=== PATIENT | male | born 1970 | race Caucasian/White ===

== ENCOUNTER 2017-10-10 02:38 | Emergency (ER) | payer OTHER, MEDICAID ==
[2017-10-10 02:45] VITALS: BP 157/96
[2017-10-10] MEDS ORDERED: CHLORDIAZEPOXIDE 25MG PREPK#6 BTL TAKEHOME ONE (02:46)
--- NOTE | 2017-10-10 02:49 | EDPHY ---
H & P Stated Complaint: sent from detox for librium Time Seen by Provider: 10/10/17 02:48 HPI/ROS: HPI CHIEF COMPLAINT: Alcohol draw from [facility]. Need for Librium. HISTORY OF PRESENT ILLNESS: 47-year-old male presents emergency room from the [facility], for alcohol withdrawal. Patient here for Librium. Denies any significant complaints. He does have a recent injury of his left clavicle and he is in a sling. Patient reports he drinks vodka. Typically a 5th a day. He thinks his last drink was yesterday. Sent here to the emergency room from the [facility] for withdrawl. Patient presents here is not noted to be tachycardic, additionally he is not tremulous. He denies any significant complaints. Denies seeing or hearing anything. No evidence of delirium tremens on exam. Past Medical History: Denies significant medical history Past Surgical History: Denies significant surgical history Social History: Alcoholism. daily he alcohol use, homeless. Family History: Noncontributory ROS REVIEW OF SYSTEMS: 10 Systems were reviewed and negative with the exception of the elements mentioned in the history of present illness. Exam Constitutional alcohol draw, triage nursing summary reviewed, vital signs reviewed, awake/alert. Eyes normal conjunctivae and sclera, EOMI, PERRLA. HENT normal inspection, atraumatic, moist mucus membranes, no epistaxis, neck supple/ no meningismus, no raccoon eyes. Respiratory clear to auscultation bilaterally, normal breath sounds, no respiratory distress, no wheezing. Cardiovascular rate normal, regular rhythm, no murmur, no edema, distal pulses normal. Gastrointestinal soft, non-tender, no rebound, no guarding, normal bowel sounds, no distension, no pulsatile mass. Genitourinary no CVA tenderness. Musculoskeletal no midline vertebral tenderness, full range of motion, no calf swelling, no tenderness of extremities, no meningismus, good pulses, neurovascularly intact. Skin pink, warm, & dry, no rash, skin atraumatic. Neurologic awake, alert and oriented x 3, AAOx3, moves all 4 extremities equally, motor intact, sensory intact, CN II-XII intact, normal cerebellar, normal vision, normal speech. Psychiatric normal mood/affect. Heme/Lymph/Immune no lymphadenopathy. Differential Diagnosis: Includes but is not limited to in a particular order alcohol withdrawal, alcohol withdrawl sz, anxiety Medical Decision Making: Plan for this patient Librium p.o. Here in the emergency room. Additionally Librium take-home pack back to the [facility]. No evidence severe withdrawal here at this time. He is not tachycardic he is not tremulous. Not seeing or hearing anything. No tongue fasciculations. Source: Patient - Personal History Current Tetanus Diphtheria and Acellular Pertussis (TDAP): Yes - Medical/Surgical History Hx Asthma: No Hx Chronic Respiratory Disease: No Hx Diabetes: No Hx Cardiac Disease: No Hx Renal Disease: No Hx Cirrhosis: No Hx Alcoholism: Yes Hx HIV/AIDS: No Hx Splenectomy or Spleen Trauma: No Other PMH: fx clavicle - Social History Smoking Status: Current every day smoker Constitutional: Initial Vital Signs Temperature (C) 36.7 C 10/10/17 02:43 Heart Rate 84 10/10/17 02:43 Respiratory Rate 16 10/10/17 02:43 Blood Pressure 157/96 H 10/10/17 02:43 O2 Sat (%) 97 10/10/17 02:43 O2 Delivery Mode Room Air Allergies/Adverse Reactions: No Known Allergies Allergy (Unverified 10/10/17 02:43) Home Medications: Medication Instructions Recorded NK [No Known Home Meds] 10/05/17 Departure - Departure Disposition: Home, Routine, Self-Care Clinical Impression: Alcohol withdrawal Qualifiers: Complication of substance-induced condition: uncomplicated Qualified Code(s): F10.230 - Alcohol dependence with withdrawal, uncomplicated Condition: Good Instructions: Chlordiazepoxide/Clidinium (By mouth), Alcohol Withdrawal (ED), Alcohol Dependence (ED) Referrals: Patient,NotPresent [Primary Care Provider] - As per Instructions
[2017-10-10] MEDS ORDERED: chlordiazePOXIDE 25 MG CAP PO ONE ×3 (02:51→02:54)
== END 2017-10-10 02:58 | disposition home or self-care (01) ==
DX: F10.230 Alcohol dependence with withdrawal, uncomplicated (principal); F17.200 Nicotine dependence, unspecified, uncomplicated

== ENCOUNTER 2017-11-14 22:23 | Emergency (ER) | payer OTHER, MEDICAID ==
--- NOTE | 2017-11-14 22:40 | EDPHY ---
H & P Time Seen by Provider: 11/14/17 22:33 HPI/ROS: CHIEF COMPLAINT: 47-year-old male here with complaint of abdominal pain and back pain for the last few hours. HISTORY OF PRESENT ILLNESS: 47-year-old male with a history of alcoholism well known to this emergency room here with complaint of abdominal pain and back pain. States the pain started approximately 2-3 hours ago while walking. There was no fall. Denies any fever chills. Denies any pain with urination. He does state that he feels like there is class in the stomach. Denies any black or tarry stools or hematemesis. REVIEW OF SYSTEMS: Constitutional: No fever, no chills. Eyes: No discharge. ENT: No sore throat. Cardiovascular: No chest pain, no palpitations. Respiratory: No cough, no shortness of breath. Gastrointestinal: + abdominal pain, no vomiting. Genitourinary: No hematuria. Musculoskeletal: + back pain. Skin: No rashes. Neurological: No headache. Smoking Status: Current every day smoker Physical Exam: General Appearance: Alert and no distress. Eyes: Pupils equal and round no injection. Respiratory: Chest is nontender, lungs are clear to auscultation. Cardiac: regular rate and rhythm. Gastrointestinal: Abdomen is soft with generalized mild abdominal tenderness, no masses, bowel sounds normal, no peritoneal signs Musculoskeletal: Neck is supple and nontender. Extremities have full range of motion and are nontender. Skin: No rashes or lesions. Constitutional: Initial Vital Signs Temperature (C) 37.4 C 11/14/17 22:32 Heart Rate 100 11/14/17 22:32 Respiratory Rate 16 11/14/17 22:32 Blood Pressure 133/84 H 11/14/17 22:32 O2 Sat (%) 96 11/14/17 22:32 O2 Delivery Mode Room Air Allergies/Adverse Reactions: No Known Allergies Allergy (Unverified 10/10/17 02:43) Home Medications: Medication Instructions Recorded NK [No Known Home Meds] 10/05/17 Medical Decision Making - Diagnostics Imaging Results: Imaging Impressions Abdomen/Pelvis CT 11/14/17 22:43 Impression: Moderate constipation. No evidence for hydronephrosis in nephrolithiasis or ureterolithiasis. No evidence for diverticulitis. Degenerative disk and degenerative joint disease lower lumbar spine. Results called and discussed with Josh Lauren PA-C at 11/14/2017 23:30. Attention: This CT examination is specifically designed to evaluate patients who are clinically suspected of having acute obstructive uropathy. This examination does not use radiographic contrast, and as such, provides only a limited evaluation of the abdomen, pelvis and retroperitoneum. If there is further clinical suspicion for pathological conditions other than obstructive uropathy, a complete CT evaluation of the abdomen and pelvis utilizing intravenous, oral, and rectal contrast should be considered. ED Course/Re-evaluation: Patient here with multiple complaints from shoulder pain, abdominal pain, back pain, foot pain. He was evaluated also vital signs are stable. He had slight leukocytosis but no evidence of intra-abdominal infection, pneumonia, meningitis , septic joint, cellulitis. Patient was clearly agitated and appeared intoxicated. He was medically cleared and discharged. Did have a small amount of blood in the urine and as he was complaining of back pain this could represent a passed kidney stone but there is no evidence of infection or acute renal failure or obstructing stone. - Data Points Laboratory Results: Laboratory Results 11/14/17 22:55 11/14/17 22:55 11/14/17 11/14/17 11/14/17 23:26 23:20 22:55 WBC RBC Hgb Hct MCV MCH MCHC RDW Plt Count MPV Neut % (Auto) Lymph % (Auto) [place] % (Auto) Eos % (Auto) Baso % (Auto) Nucleat RBC Rel Count Absolute Neuts (auto) Absolute Lymphs (auto) Absolute Monos (auto) Absolute Eos (auto) Absolute Basos (auto) Absolute Nucleated RBC Immature Gran % Immature Gran # RBC/WBC/PLT Morphology Platelet Estimate Sodium 135 mEq/L mEq/L (135-145) Potassium 3.8 mEq/L mEq/L (3.3-5.0) Chloride 101 mEq/L mEq/L (97-110) Carbon Dioxide 21 mEq/l L mEq/l (22-31) Anion Gap 13 mEq/L mEq/L (8-16) BUN 7 mg/dL mg/dL (7-23) Creatinine 0.7 mg/dL mg/dL (0.7-1.3) Estimated GFR > 60 Glucose 110 mg/dL H mg/dL (70-100) Calcium 9.6 mg/dL mg/dL (8.5-10.4) Total Bilirubin 1.8 mg/dL H mg/dL (0.1-1.4) AST 30 IU/L IU/L (17-59) ALT 36 IU/L IU/L (21-72) Alkaline Phosphatase 67 IU/L IU/L (38-126) Total Protein 6.8 g/dL g/dL (6.3-8.2) Albumin 4.2 g/dL g/dL (3.5-5.0) Lipase 226 IU/L IU/L (23-300) Urine Color PALE YELLOW Urine Appearance HAZY Urine pH 7.0 (5.0-7.5) Ur Specific [place] 1.004 (1.002-1.030) Urine Protein NEGATIVE (NEGATIVE) Urine Ketones TRACE H (NEGATIVE) Urine Blood 1+ H (NEGATIVE) Urine Nitrate NEGATIVE (NEGATIVE) Urine Bilirubin NEGATIVE (NEGATIVE) Urine Urobilinogen NEGATIVE EU EU (0.2-1.0) Ur Leukocyte Esterase NEGATIVE (NEGATIVE) Urine RBC 1-3 /hpf /hpf (0-3) Urine WBC 1-3 /hpf /hpf (0-3) Ur Epithelial Cells NONE SEEN /lpf /lpf (NONE-1+) Urine Mucus TRACE /lpf /lpf (NONE-1+) Urine Glucose NEGATIVE (NEGATIVE) Urine Opiates Screen NEGATIVE ng/mL ng/mL (NEGATIVE) Urine Barbiturates NEGATIVE ng/mL ng/mL (NEGATIVE) Ur Phencyclidine Scrn NEGATIVE ng/mL ng/mL (NEGATIVE) Ur Amphetamines Screen NEGATIVE ng/mL ng/mL (NEGATIVE) U Benzodiazepines Scrn NEGATIVE ng/mL ng/mL (NEGATIVE) Urine Cocaine Screen NEGATIVE ng/mL ng/mL (NEGATIVE) U Marijuana (THC) Screen 407 ng/mL ng/mL (NEGATIVE) 11/14/17 22:55 WBC 17.99 10^3/uL H 10^3/uL (3.80-9.50) RBC 4.36 10^6/uL L 10^6/uL (4.40-6.38) Hgb 14.8 g/dL g/dL (13.7-17.5) Hct 40.2 % % (40.0-51.0) MCV 92.2 fL fL (81.5-99.8) MCH 33.9 pg pg (27.9-34.1) MCHC 36.8 g/dL H g/dL (32.4-36.7) RDW 12.5 % % (11.5-15.2) Plt Count 250 10^3/uL 10^3/uL (150-400) MPV 10.3 fL fL (8.7-11.7) Neut % (Auto) 90.5 % H % (39.3-74.2) Lymph % (Auto) 2.9 % L % (15.0-45.0) [place] % (Auto) 6.0 % % (4.5-13.0) Eos % (Auto) 0.1 % L % (0.6-7.6) Baso % (Auto) 0.2 % L % (0.3-1.7) Nucleat RBC Rel Count 0.0 % % (0.0-0.2) Absolute Neuts (auto) 16.28 10^3/uL H 10^3/uL (1.70-6.50) Absolute Lymphs (auto) 0.52 10^3/uL L 10^3/uL (1.00-3.00) Absolute Monos (auto) 1.08 10^3/uL H 10^3/uL (0.30-0.80) Absolute Eos (auto) 0.02 10^3/uL L 10^3/uL (0.03-0.40) Absolute Basos (auto) 0.04 10^3/uL 10^3/uL (0.02-0.10) Absolute Nucleated RBC 0.00 10^3/uL 10^3/uL (0-0.01) Immature Gran % 0.3 % % (0.0-1.1) Immature Gran # 0.05 10^3/uL 10^3/uL (0.00-0.10) RBC/WBC/PLT Morphology TNP Platelet Estimate TNP Sodium Potassium Chloride Carbon Dioxide Anion Gap BUN Creatinine Estimated GFR Glucose Calcium Total Bilirubin AST ALT Alkaline Phosphatase Total Protein Albumin Lipase Urine Color Urine Appearance Urine pH Ur Specific [place] Urine Protein Urine Ketones Urine Blood Urine Nitrate Urine Bilirubin Urine Urobilinogen Ur Leukocyte Esterase Urine RBC Urine WBC Ur Epithelial Cells Urine Mucus Urine Glucose Urine Opiates Screen Urine Barbiturates Ur Phencyclidine Scrn Ur Amphetamines Screen U Benzodiazepines Scrn Urine Cocaine Screen U Marijuana (THC) Screen Medications Given: Lorazepam (Ativan 1mg/Ml Iv Syr) 0.5 mg IV ONCE ONE Stop: 11/15/17 23:30 Last Admin: 11/15/17 00:04 Dose: Not Given Discontinued Medications Famotidine (Pepcid) 20 mg IVP EDNOW ONE Stop: 11/14/17 22:45 Last Admin: 11/14/17 23:24 Dose: 20 mg Fentanyl (Sublimaze) 100 mcg IVP EDNOW ONE Stop: 11/14/17 23:49 Last Admin: 11/15/17 00:24 Dose: 100 mcg Sodium Chloride (Ns) 1,000 mls @ 0 mls/hr IV EDNOW ONE; Wide Open PRN Reason: Protocol Stop: 11/14/17 22:45 Last Admin: 11/14/17 23:00 Dose: 1,000 mls Sodium Chloride (Ns) 1,000 mls @ 0 mls/hr IV EDNOW ONE; Wide Open PRN Reason: Protocol Stop: 11/14/17 23:31 Last Admin: 11/15/17 00:00 Dose: 1,000 mls Ketorolac Tromethamine (Toradol) 15 mg IVP EDNOW ONE Stop: 11/14/17 22:45 Last Admin: 11/14/17 23:24 Dose: 15 mg Lorazepam (Ativan Injection) 0.5 mg IVP EDNOW ONE Stop: 11/14/17 23:34 Last Admin: 11/14/17 23:59 Dose: 0.5 mg Departure - Departure Referrals: NONE *PRIMARY CARE P,. [Primary Care Provider] - As per Instructions
[2017-11-14] MEDS ORDERED: NS 1,000 ML IV ONE ×2 (22:44→23:30)
[2017-11-14] MEDS ORDERED: KETOROLAC 15 MG/1 ML SDV IVP ONE (22:44)
[2017-11-14] MEDS ORDERED: FAMOTIDINE 20 MG/2 ML SDV IVP ONE (22:44)
[2017-11-14 23:06] LABS: PLATELET COUNT 250 10^3/uL (150-400)
[2017-11-14] MEDS ORDERED: LORazepam 2 MG/ML INJ IVP ONE (23:33)
[2017-11-14] MEDS ORDERED: fentaNYL 100 MCG/2 ML INJ IVP ONE (23:48)
[2017-11-15 01:43] VITALS: BP 111/59
[2017-11-15] MEDS ORDERED: *PHM DO NOT USE-LORazepam 1 MG/ML IV NEWBORN SYR IV ONE (23:29)
== END 2017-11-15 01:44 | disposition home or self-care (01) ==
LOC: EDUNIT#
DX: R10.9 Unspecified abdominal pain (principal); M54.9 Dorsalgia, unspecified; E86.9 Volume depletion, unspecified; F10.10 Alcohol abuse, uncomplicated; F17.200 Nicotine dependence, unspecified, uncomplicated
CPT/HCPCS: 74176; 96361; 96374; 96375; 99285; J1885; J2060; J3010; 80307; G0480